=== PATIENT | female | born 1955 | race Caucasian/White ===

== ENCOUNTER 2019-01-01 14:47 | Emergency (ER) | payer OTHER ==
[2019-01-01 15:07] VITALS: BP 145/96; PULSE 77; TEMP 98.3; BMI 24.3
[2019-01-01] MEDS ORDERED: ACETAMINOPHEN 325 MG TABLET (FP) PO ONE (15:46)
[2019-01-01] MEDS ORDERED: KETOROLAC TROMETHAMINE 30 MG/1 ML VIAL IM ONE (15:47)
--- NOTE | 2019-01-01 15:51 | PDOC ---
Documentation entered by Maxi Ryan SCRIBE, acting as scribe for Giovanna Barksdale MD. Giovanna Barksdale MD: This documentation has been prepared by the Connor valles Daniel, SCRIBE, under my direction and personally reviewed by me in its entirety. I confirm that the documentation accurately reflects all work, treatment, procedures, and medical decision making performed by me. History of Present Illness - General Chief Complaint: Pain Stated Complaint: RIGHT HIP PAIN History Source: Patient Exam Limitations: No Limitations - History of Present Illness Initial Comments: 01/01/19 15:51 The patient is a 63 year old female with no past medical history here today for evaluation of right hip and buttock pain. The patient reports that her right hip pain developed on monday (12/29/18) and denies any trauma. She reports that she lives a very active life and played tennis prior to her sudden onset of acute hip/pelvis pain. She reports seeing her PCP Dr Carrillo, getting an X-ray which was negative yesterday, and taking aleve with no relief. She describes her hip pain as a deep ache most prominent in her right posterior hip that can radiate down to her right knee. current pain is 2/10 not moving. 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 Patient denies headache, lightheadedness. Denies fever, chills. Denies chest pain, shortness of breath. Denies nausea, vomiting, diarrhea, abdominal pain. no bladder or bowel problems/incontinence/retention. no neurologic changes. Allergies: NKA Social history: Denies tobacco or illicit drug use. Confirms 2 glasses of wine a night. PCP: Jose Carrillo 01/01/19 16:03 Past History - Past Medical History Allergies/Adverse Reactions: Allergies Allergy/AdvReac Type Severity Reaction Status Date / Time No Known Allergies Allergy Verified 03/10/16 08:37 Home Medications: Ambulatory Orders No Home Medications 0 dose .ROUTE UTDICT 08/16/13 Cyclobenzaprine HCl [Flexeril 10 mg] 10 mg PO TID PRN #15 tablet 01/01/19 oxyCODONE HCL [Roxicodone -] 5 mg PO Q6H PRN #12 tablet MDD 4 01/01/19 Anemia: No Asthma: No Cancer: No Cardiac Disorders: No CVA: No COPD: No CHF: No Dementia: No Diabetes: No GI Disorders: No Disorders: No HTN: No Hypercholesterolemia: No Liver Disease: No Seizures: No Thyroid Disease: No - Surgical History Abdominal Surgery: No Appendectomy: No Cardiac Surgery: No Cholecystectomy: No Lung Surgery: No Neurologic Surgery: No Orthopedic Surgery: Yes (FX [id number] WITH PLATE AND SCREW) - Suicide/Smoking/Psychosocial Hx Smoking History: Never smoked Have you smoked in the past 12 months: No Hx Alcohol Use: Yes (DAILY 1-2) Drug/Substance Use Hx: No Substance Use Type: Alcohol Hx Substance Use Treatment: No Review of Systems - Review of Systems Able to Perform ROS?: Yes Comments:: 01/01/19 15:51 Constitutional: no fevers or chills. Gastrointestinal: no abdominal pain, nausea or vomiting. no bowel [id number]. Genitourinary: no urinary sx, hematuria. no retention or incontinence MUSCULOSKELETAL: +right hip pain. No swelling. +back, buttock pain. SKIN: no redness or skin changes, no discharge, no rash. No wounds. Hematologic: no easy bruising/bleeding. NEUROLOGIC: No headache, dizziness, LOC or altered mental status. No weakness, numbness or tingling. Allergic/Immunologic: no allergies All other systems reviewed and negative, or as documented in HPI. 01/01/19 16:04 01/01/19 16:04 *Physical Exam - Vital Signs Last Vital Signs Temp Pulse Resp BP Pulse Ox 98.3 F 77 18 145/96 99 01/01/19 14:47 01/01/19 14:47 01/01/19 14:47 01/01/19 14:47 01/01/19 14:47 - Physical Exam Comments: 01/01/19 15:52 General: NAD, well appearing Abdomen: nontender, soft. Vascular: 2+ DP pulses symmetric and equal. Back: no midline tenderness, no stepoffs, FROM MSK: +right lateral buttock tenderness. Negative straight leg test bilaterally. notable for soft compartments, Cap refill <2 sec. Proximal and distal strength 5 /5, band top maker strength 5/5 - equal and symmetric. Plantar flexion and dorsiflexion 5/ 5. FROM at the prox hip and knee joints.. Sensation grossly intact to light touch. No calf tenderness. Neuro: alert, no focal neurologic deficits, 5/5 prox and distal lower extrem strength, SILT in all extrem Skin: color normal color, warm and well perfused. Cap refill <2 sec. 01/01/19 16:05 ED Treatment Course - RADIOLOGY Radiology Studies Ordered: Category Date Time Status HIP & PELVIS-RIGHT [RAD] Stat Radiology 01/01/19 14:56 Taken Medical Decision Making - Medical Decision Making 01/01/19 15:55 VS reviewed, wnl Xray pelvis and rt hip, normal joint space alignment, no acute fx or dislocation. neuro intact, neg SLR, doubt sciatic pain occasional radiculopathy noted no significant limitations with ROM, ambulated to the department Discussed results with patient. made aware of impression and plan. Pain control with OTC meds including motrin/tylenol as needed every 6 hours; oxycodone low dose prn for severe pain, flexeril for muscle relaxant. Ortho followup provided. stretching exercises, ROM WBAT. Please return to ED for increased pain, weakness, numbness/tingling, fever, or redness, falls/injuries, abdominal pain, neuro changes. PCP followup for clinical reeval *DC/Admit/Observation/Transfer Diagnosis at time of Disposition: Acute buttock pain Hip pain Qualifiers: Laterality: right Qualified Code(s): M25.551 - Pain in right hip - Discharge Dispostion Disposition: HOME Condition at time of disposition: Stable Decision to Admit order: No - Prescriptions Prescriptions: Cyclobenzaprine HCl [Flexeril 10 mg] 10 mg PO TID PRN #15 tablet PRN Reason: Muscle Spasms oxyCODONE HCL [Roxicodone -] 5 mg PO Q6H PRN #12 tablet MDD 4 PRN Reason: Severe Pain - Referrals Referrals: Jose Carrillo MD [Primary Care Provider] - Dmitri Simmons MD [Staff Physician] - Delfino Carpio MD [Staff Physician] - - Patient Instructions Printed Discharge Instructions: DI for Low Back Pain, DI for Hip Pain Additional Instructions: you most likely have musculoskeletal strain of your hip and lower back/buttock avoid heavy lifting or strenuous activity to minimize further injury flexeril is a muscle relaxant, take three times a day as needed may cause sleepiness, do not drive or operate machinery or take with alcohol. May take ibuprofen 400-600mg and/or tylenol 650 to 975 mg every 6 hours as needed for mild to moderate pain, available over the counter. Oxycodone every 6 hours as needed for severe pain; Please do not drive or operate heavy machinery while on this medication because it can impair your judgement. This is a very addictive medication, do not take it unless you absolutely have to. continue with range of motion exercises, as this will facilitate the healing process; avoid being bed bound and immobile. Follow up with primary doctor/specialist services provided as well. orthopedics referrals given. This should heal over the next 1-2 weeks. - Post Discharge Activity
[2019-01-01] MEDS ORDERED: KETOROLAC TROMETHAMINE 30 MG/1 ML VIAL ONE (15:54)
== END 2019-01-01 16:00 | disposition home or self-care (01) ==
LOC: FER 14:47
PROC: 3E0233Z Introduction of Anti-inflammatory into Muscle, Percutaneous Approach (ICD-10-PCS; principal; 2019-01-01)
DX: M25.551 Pain in right hip (principal); M79.10 Myalgia, unspecified site
CPT/HCPCS: 73523-TC-FY; 99282-25